=== PATIENT | female | born 1990 | race Caucasian/White ===

== ENCOUNTER 2022-11-10 07:06 | Inpatient (IN) ==
[2022-11-10] MEDS ORDERED: OXYTOCIN 30 UNITS/500 ML BAG IV PRN ×3 (07:46→15:55)
[2022-11-10] MEDS ORDERED: LIDOCAINE 1% LOCAL 20 ML VIAL INFIL PRN (07:46)
--- NOTE | 2022-11-10 08:09 | History & Physical Report ---
Date of Service November 10, 2022 Assessment & Plan (1) Spontaneous rupture of membranes: (2) Normal labor: (3) Prior miscarriage with , antepartum: Plan Plan - Patient admitted to labor and delivery for ROM and labor - Patient noticed ROM at 1:30 AM this morning w/ contractions arising at 2:30 AM - 2/80/-[address] Rebolledo - Discussed oxytocin augmentation if indicated - Will anticipate epidural as contractions arise, anesthesia consulted - Labs pending History of Present Illness Chief Complaint: R/o ROM Primary Care Provider: Lilibeth Harding DO Subjective: Elodia is a 32F currently at 40 1/7 with TRE 11/09/22 determined by LMP 02/02/22 who is presented to L&D for possible ROM and is being admitted for confirmed ROM/labor. Complications: None Reason for Induction/: N/a Movement: Yes Fluid Loss/ROM: Yes @ 1:30 AM, pink tinged fluid, no green/yellow color Contractions: Yes started @ 2:30 AM, ongoing Bloody show/discharge: No External FHT and uterine monitor: Category 1, tracing reactive, good FHT variability (+acel/-dcel), FHT average 140, contractions present q5min Last OB appointment: 11/03, regular care [facility] Hx: No Hx of STI, no abnormal PAP Labs: Blood Type: A+ Antibody Screen: Negative Hg/Hct (today): Pending WBC/Plt (today): Pending Rubella: Immune RPR: Non-reactive Gonorrhea: Negative Chlamydia: Negative HIV: Negative HbSAg: Negative GBS: Negative Panorama: Low risk Allergies Allergy/AdvReac Type Severity Reaction Status Date / Time No Known Allergies Allergy Verified 11/03/22 13:38 Home Medications Medication Instructions Recorded Confirmed Type prenat.vits,joseluis,[id number] 1 tab PO DAILY 03/26/22 11/03/22 History ferrous sulfate PO 09/02/22 11/03/22 History Patient History Medical History (Updated 11/10/22 @ 08:03 by Zakiya La DO) Dysplastic nevus syndrome Endometriosis Varicella vaccination Surgical History H/O wisdom tooth extraction Family History Grandmother (Maternal) Glaucoma Grandmother (Paternal) HHT (hereditary hemorrhagic telangiectasia) Father HHT (hereditary hemorrhagic telangiectasia) Mother Glaucoma Grandfather (Paternal) Diabetes Denies family history of Ovarian cancer Myocardial infarction Breast cancer Colorectal cancer Uterine cancer Social History (Updated 11/10/22 @ 07:34 by Lalita Holliday RN) Smoking Status: Never smoker Second Hand Exposure: No; Hx Alcohol Use: No Hx Substance Use: No Preferred Language: Luxembourger Visual Impairment: Partially Limited Hearing Ability: Normal Bobbin Handler Required: No Beliefs That Will Affect Care: None marital status: marital status details: Maxime Mcgregor (33) [phone] Current Living Situation: Spouse Current Living Situation Comment: lives with spouse, arturo current occupational status: employed current occupation: Teacher, [employer]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 How many Children do You have: 0 Other Information That Helps Us Care for You: No Feels Safe at Home: Yes Safety Concerns: Feels Safe At This Time Childhood Exposure to Second-Hand Smoke: Yes caffeine: Yes during the past year weight has: remained stable Dental Care, Regularly: No Physical Activity Frequency: Does not Exercise Seatbelt Use: sometimes Sunscreen Use: Yes Assistive Devices: None Review of Systems - Denies fever, chills, sweats - Denies dyspnea or pleuritic pain - Denies chest pain, palpitations, or pressure - Denies breast pain - Denies dysuria - Denies headache or visual changes - Endorses diarrhea last night Physical Exam Physical Exam: General: Alert, oriented. No acute distress. Cardiac: Regular rate and rhythm, no murmurs/rubs/gallops. Respiratory: Clear to auscultation bilaterally a/p, no wheezes/rales/rhonchi. No increased work of breathing. Symmetrical chest rise. No respiratory distress. Abdomen: Gravid; FHTs present, contractions present; Position: Vertex via Bryon maneuver Pelvic: 2/80/-[address] Rebolledo Lower Extremities: No lower extremity edema or swelling. No deep calf pain. Paolo's negative bilaterally. Results & Data ([facility]) Vital Signs (Past 12 Hours) Vital Signs Pulse BP 11/10/22 07:21 93 H 123/83 Supervising Physician Co-Signing Physician Notes Resident Physician Supervision Note: I interviewed and examined the patient. Discussed with Dr. La and agree with findings and plan as documented in the note. Any exceptions or clarifications are listed here: c/o ctx increasing in frequency and intensity, also noted intermittent gushes at 130 and every hour following. +FM, some pink tinge. SSE + nitrazine, pooling, ferning. SVE /-2, EFW 6-7. Was previously FT so will see if progresses over the next few hours, discussed pit if indicated Documented By: Awa Rebolledo MD Resident Activity Tracking Resident Involvement: Resident Care Provided Care Provided: OB Delivery
[2022-11-10 08:23] LABS: Hematocrit (blood only) 33.9 % (34.1-44.9); Hemoglobin 11.6 g/dl (12.0-16.0); Mean Corpuscular Hemoglobin 30.4 pg (25.0-34.0); Mean Corpuscular Hgb Conc 34.2 g/dL (32.0-36.0); Mean Corpuscular Volume 88.7 fL (80.0-100.0); Platelet Count 236 K/uL (130-400); RDW Coefficient of Variation 12.6 % (11.5-14.5); RDW Standard Deviation 40.7 fL (36.4-46.3); Red Blood Count 3.82 M/uL (3.93-5.22)
--- NOTE | 2022-11-10 09:52 | Labor Progress Brief Note ---
Date of Service November 10, 2022 Subjective feeling contractions Assessment & Plan (1) Spontaneous rupture of membranes: Plan Labor pattern not regular, rec pitocin. pt agrees. fhts categ 1. epidural ok when desires. Admission and Anticipated Discharge Date Admission Date: November 10, 2022 Physical Exam Constitutional: WD/WN, vitals as above Genitourinary: Manual OB Exam: + cervical dilation (2-3), + cervical effacement 90% and + station -2 OB Exam Monitor Tracing: + external FHT monitor used, + external uterine monitor used (q2-5), + category I and + normal FHT variability EFW 6-7# Results & Data ([facility]) Vital Signs (Past 12 Hours) Vital Signs Temp Pulse Resp BP 11/10/22 07:24 98.6 F 93 H 18 123/83 11/10/22 09:18 98.1 F 11/10/22 07:21 93 H 123/83 Coding Level of Care Code None Diagnoses Spontaneous rupture of membranes
[2022-11-10] MEDS: LACTATED RINGER'S 1,000 ML IV PRN ×2 (10:03→11:37)
[2022-11-10] MEDS ORDERED: ePHEDrine sulfate 50 MG/ML AMP ONE (10:48)
[2022-11-10] MEDS ORDERED: fentaNYL citrate 100 MCG/2 ML VIAL ONE (10:49)
[2022-11-10] MEDS ORDERED: fentaNYL 2MCG/ML ROPIVACAINE 1.25MG/ML 100 ML BAG EPI ONE (10:49)
[2022-11-10] MEDS ORDERED: SODIUM CHLORIDE 0.9% INJ 10 ML VIAL ONE (10:49)
[2022-11-10] MEDS ORDERED: BUPIVACAINE 0.25% 30 ML VIAL ONE (10:49)
[2022-11-10] MEDS ORDERED: LIDOCAINE 2%/EPINEPHRINE 1:200,000 20 ML SDV ONE (10:49)
--- NOTE | 2022-11-10 11:10 | Anesthesiology Consultation ---
Date of Service November 10, 2022 Assessment & Plan Chart Review Chart Review: Acceptable Risk for Labor Epidural Consults Requested none ASA ASA2 Proposed Anesthesia Anesthesia Type: Labor Epidural Risk / Benefits Reviewed With: PT / POA / Parent / Guardian, Accepts Plan and Informed Consent Obtained History Height/Weight Height: 5 ft 1 in Weight: 67.132 kg Allergies Allergy/AdvReac Type Severity Reaction Status Date / Time No Known Allergies Allergy Verified 11/03/22 13:38 Medications Home Medications Medication Instructions Recorded Confirmed Last Taken prenat.vits,joseluis,[id number] 1 tab PO DAILY 03/26/22 11/03/22 Unknown ferrous sulfate PO 09/02/22 11/03/22 Unknown Active Medications Generic Name Dose Route Start Last Admin Trade Name Freq PRN Reason Stop Dose Admin Lactated Ringer's 1,000 mls @ 125 mls/hr 11/10/22 07:46 11/10/22 10:45 Lr IV 11/12/22 07:45 999 mls/hr .Q8H PRN Infusion L&D Protocol Protocol Oxytocin 30 units in 500 mls @ 1 mls/hr 11/10/22 09:07 11/10/22 10:04 Pitocin IV 11/12/22 09:06 0.06 units/hr .Q24H PRN 1 mls/hr Labor Induction/Augmentation Administration Protocol 0.06 UNITS/HR Past Medical History Medical History Dysplastic nevus syndrome Endometriosis Varicella vaccination Exercise / Class Metabolic Activity II 4-5 Yardwork/Stairs/Walk up hill Past Family History Family History Grandmother (Maternal) Glaucoma Grandmother (Paternal) HHT (hereditary hemorrhagic telangiectasia) Father HHT (hereditary hemorrhagic telangiectasia) Mother Glaucoma Grandfather (Paternal) Diabetes Denies family history of Ovarian cancer Myocardial infarction Breast cancer Colorectal cancer Uterine cancer Past Surgical History Surgical History H/O wisdom tooth extraction Past Anesthesia History No Hx of Anesthesia Complications and No Family Hx of Anesthesia Complications History of PONV No Hx of PONV and No Hx of Motion Sickness Social History Smoking Status: Never smoker Hx Alcohol Use: No Hx Substance Use: No substance use type: does not use Physical Exam Vital Signs Last Vital Signs Temp 98.1 F 11/10/22 09:18 Pulse 90 11/10/22 11:04 Resp 18 11/10/22 07:24 BP 133/80 11/10/22 11:04 ENMT Mouth: no dentition abnormality Thyromental Distance: > or= 3.5 Finger Breadths Mallampati Class: II Neck normal visual inspection Respiratory normal respiratory effort Auscultation: lungs clear to auscultation bilaterally Cardiovascular Rate/Rhythm: regular rate and regular rhythm Testing Laboratory Results 11/10/22 07:58
[2022-11-10] MEDS ORDERED: NALOXONE HCL 0.4 MG/1 ML VIAL/CARP IV PRN (11:30)
[2022-11-10] MEDS ORDERED: fentaNYL 2MCG/ML ROPIVACAINE 1.25MG/ML 100 ML BAG EPI PRN (11:30)
[2022-11-10] MEDS ORDERED: ONDANSETRON INJ 2 MG/ML 2 ML VIAL IV PRN (11:30)
[2022-11-10] MEDS ORDERED: NALOXONE HCL 1 MG in SODIUM CHLORIDE 0.9% 1000ML 1,000 ML IV PRN (11:30)
[2022-11-10] MEDS ORDERED: diphenhydrAMINE 50 MG/ML VIAL IV PRN (11:30)
[2022-11-10] MEDS ORDERED: ePHEDrine sulfate 50 MG/ML AMP IV PRN (11:30)
[2022-11-10] MEDS ORDERED: NALBUPHINE HCL INJ 10 MG/ML AMP IV PRN (11:30)
[2022-11-10] MEDS ORDERED: NURSING L&D Epidural Breakthrough Pain Update ONE (13:03)
--- NOTE | 2022-11-10 13:46 | Labor Progress Brief Note ---
Date of Service November 10, 2022 Subjective denies pressure Assessment & Plan (1) Spontaneous rupture of membranes: (2) Normal labor: Plan cont with pit augmentation. antip 2nd stage soon. fhts categ 1. Admission and Anticipated Discharge Date Admission Date: November 10, 2022 Physical Exam Constitutional: WD/WN, vitals as above Genitourinary: Manual OB Exam: + cervical dilation (rim), + cervical effacement 100%, + station + 1 and + amniotic fluid (forebag arom with exam) OB Exam Monitor Tracing: + external FHT monitor used, + external uterine monitor used (q2 pit at 9), + category I and + normal FHT variability [facility] & [facility]) Vital Signs (Past 12 Hours) Vital Signs Temp Pulse Resp BP Pulse Ox 11/10/22 12:45 18 11/10/22 12:30 20 11/10/22 12:15 18 11/10/22 12:00 20 11/10/22 11:45 18 11/10/22 07:24 98.6 F 93 H 18 123/83 11/10/22 13:40 96 H 100 11/10/22 13:35 65 98 11/10/22 13:33 72 118/75 11/10/22 13:30 66 98 11/10/22 13:25 71 99 11/10/22 13:20 76 100 11/10/22 13:17 74 122/77 11/10/22 13:15 81 100 11/10/22 13:11 77 122/78 11/10/22 13:10 77 99 11/10/22 13:06 75 115/77 11/10/22 13:05 74 98 11/10/22 13:03 74 119/74 11/10/22 13:00 89 99 11/10/22 12:58 98.6 F 77 123/73 11/10/22 12:55 82 99 11/10/22 12:50 81 98 11/10/22 12:51 80 120/81 11/10/22 12:47 81 117/80 11/10/22 12:45 89 98 11/10/22 12:42 81 118/76 11/10/22 12:40 81 99 11/10/22 12:36 83 110/69 11/10/22 12:35 81 98 11/10/22 12:32 87 105/70 11/10/22 12:30 81 98 11/10/22 11:30 18 11/10/22 11:30 18 11/10/22 12:26 78 108/65 11/10/22 12:25 74 98 11/10/22 12:21 78 110/67 11/10/22 12:20 75 98 11/10/22 12:16 81 109/67 11/10/22 12:15 79 98 11/10/22 12:11 74 116/73 11/10/22 12:10 80 99 11/10/22 12:07 78 114/74 11/10/22 12:05 82 99 11/10/22 12:01 78 105/61 11/10/22 12:00 85 98 11/10/22 11:56 83 108/68 11/10/22 11:55 80 98 11/10/22 11:00 98.2 F 11/10/22 11:52 83 108/68 11/10/22 11:50 86 98 11/10/22 11:46 88 112/70 11/10/22 11:45 92 H 98 11/10/22 11:44 88 112/72 11/10/22 11:42 81 105/65 11/10/22 11:40 99 11/10/22 11:40 91 H 11/10/22 11:40 92 H 112/73 11/10/22 11:38 88 107/70 11/10/22 11:35 89 99 11/10/22 11:36 93 H 113/69 11/10/22 11:34 82 112/70 11/10/22 11:32 92 H 122/75 11/10/22 11:30 99 11/10/22 11:30 86 11/10/22 11:30 80 115/69 11/10/22 11:27 96 H 126/85 11/10/22 11:25 89 99 11/10/22 11:20 82 100 11/10/22 11:15 91 H 100 11/10/22 11:10 106 H 100 11/10/22 11:04 90 133/80 11/10/22 10:03 74 127/92 11/10/22 09:18 98.1 F 11/10/22 07:21 93 H 123/83 Coding Level of Care Code None Diagnoses Spontaneous rupture of membranes Normal labor O80; Z37.9
--- NOTE | 2022-11-10 15:21 | Delivery Summary ---
Vaginal Delivery Summary Date of Service November 10, 2022 Vaginal Delivery Summary The patient dilated to complete and pushed to deliver a viable female Apgars 9 and 9 via over intact perineum. Mouth and nose bulb suctioned at perineum. Shoulders and body delivered with ease. was vigorous and crying at . Cord clamped at 30 seconds of life and to maternal abdomen where the cord was then doubly clamped and cut. Placenta delivered spontaneously and intact, three-vessel cord. Hemostasis achieved with dilute pitocin and uterine massage and drainage of the bladder for approximately 150 cc under sterile conditions. Left sulcal laceration and bilateral labia lacerations repaired with 3-0 vicyl. Cervix and sulci intact. EBL 500 cc. Mother and baby stable in recovery. [facility] Vaginal Delivery Charge Delivery Type Details:
[2022-11-10] MEDS ORDERED: bisacodyL 10 MG SUPP PR PRN (15:55)
[2022-11-10] MEDS ORDERED: BENZOCAINE 20% AER SPR 82.5 GM CAN EXT PRN (15:55)
[2022-11-10] MEDS ORDERED: ACETAMINOPHEN 325 MG TAB PO PRN (15:55)
[2022-11-10] MEDS ORDERED: HYDROCORTISONE ACETATE 25 MG SUPP PR PRN (15:55)
[2022-11-10] MEDS ORDERED: oxyCODONE/ACETAMINOPHEN 5mg/325mg TAB PO PRN (15:55)
[2022-11-10] MEDS ORDERED: DIPHTHERIA/TETANUS/PERTUSSIS 0.5 ML SYR/VIAL IM ONE (15:55)
[2022-11-10] MEDS ORDERED: OXYTOCIN 20 UNITS in LACTATED RINGER'S 1,000 ML IV SCH (16:15)
[2022-11-10] MEDS: IBUPROFEN 600 MG TAB PO PRN (17:37)
--- NOTE | 2022-11-11 05:26 | Obstetrical Progress Note ---
Date of Service November 11, 2022 Assessment & Plan (1) care following vaginal delivery: Plan - Overall, feeling well and eating well today, notes shakiness in hands and legs at rest - Infant feeding going well - Notes episode of urinary incontinence yesterday afternoon, normal void since, continue to follow - Passing gas appropriately - Ambulating in room, notes lightheadedness, recommending nursing assist today - Pain controlled w/ Ibuprofen - Hgb 11.6 on 11/10, H&H ordered for 11/11 AM - Vitals stable and wnl - Continue to advance routine PP care - Anticipate discharge @ 48+ hours PP - Recommending f/u outpatient in 6 weeks Admission and Anticipated Discharge Date Admission Date: November 10, 2022 Supervising Physician Co-Signing Physician Notes Resident Physician Supervision Note: I was present with Dr. La during the history and exam. I discussed the case with the resident and agree with the findings and plan as documented in the note. Any exceptions or clarifications are listed here: stable, eating, voiding, ambulating. in discussion with her suspect her jittery sx are due to anxiety. will await hgb this am but she is sitting upright in bed and tolerating that and no excess bleeding so do not suspect any issues with hemoglobin. encouraged eating and hydration and moving this am. routine pp care. reviewed with her nursing team. Documented By: Alka Cabrera MD, FACOG Subjective Elodia is a 32F who is PPD #1 following vaginal delivery at 40 1/7. She reports feeling well overall, but has been 'shaky' since baby left the room for the nursery at 4 AM. - Ambulation - to bathroom, notes lightheadedness with standing/turning - Voiding/Jasso - independent voids, no dysuria or pressure, notes episode of incontinence yesterday (did not experience sensation to void), had normal void since - Gas/Stool - passing gas, no bowel movement - Diet - light regular (crackers), no nausea or emesis - Lochia - diminishing, moderate amount - Infant Feeding Type - breast feeding - Pain Level - 11/30, controlled with Ibuprofen Review of Systems - Patient notes that she is overall 'shaky', she believes this started whenever her baby left to go to the nursery, she notes worsening anxiety whenever infant left the room - Denies fever, chills, sweats - Denies shortness of breath, difficulty breathing, chest pain, palpitations, chest pressure. - Denies breast pain. - Denies headache or changes in vision. Physical Exam Physical Exam: General: Alert, oriented. No acute distress. Cardiac: RRR, normal S1/S2, no murmurs/rubs/gallops. Respiratory: Non-labored, CTAB, no wheezes/rales/rhonchi. Symmetric chest rise. Abdomen: Soft, nontender, nondistended. Bowel sounds present. Uterus: Uterine fundus firm, palpable 2 cm below umbilicus. Lower Extremities: No lower extremity edema or swelling. No deep calf pain. Paolo's negative bilaterally. Results & Data ([facility]) Vital Signs (Past 12 Hours) Vital Signs Temp Pulse Pulse Pulse Resp BP BP 11/11/22 03:49 36.9 C 84 18 123/76 11/10/22 23:20 37 C 73 18 117/81 11/10/22 20:00 36.6 C 82 18 124/81 11/10/22 19:40 36.9 C 79 18 129/85 11/10/22 18:10 37.3 C 20 11/10/22 18:03 111 H 115/73 11/10/22 17:48 95 H 124/84 11/10/22 17:33 90 125/82 Pulse Ox O2 Del Method 11/11/22 03:49 97 Room Air 11/10/22 23:20 98 Room Air 11/10/22 20:00 96 Room Air 11/10/22 19:40 97 Room Air 11/10/22 18:10 11/10/22 18:03 11/10/22 17:48 11/10/22 17:33 Resident Activity Tracking Resident Involvement: Resident Care Provided Care Provided: OB Delivery
[2022-11-11 06:59] LABS: Hematocrit (blood only) 28.8 % (34.1-44.9); Hemoglobin 9.9 g/dl (12.0-16.0)
[2022-11-11] MEDS: PRENATAL VITAMIN 1 TAB PO SCH (08:33)
[2022-11-11] MEDS: IBUPROFEN 600 MG TAB PO PRN ×3 (08:33→19:22)
[2022-11-11] MEDS: DOCUSATE SODIUM 100 MG CAP PO SCH ×2 (08:34→19:22)
--- NOTE | 2022-11-12 05:47 | Obstetrical Progress Note ---
Date of Service November 12, 2022 Assessment & Plan (1) care following vaginal delivery: Plan - Overall, feeling well and eating well today, she wants to go home - feeding going well - Urinating and stooling appropriately - Ambulating in room - Pain controlled w/ Ibuprofen - Hgb 9.9 on 11/11 - Vitals stable and wnl - Anticipate discharge today - Recommending f/u outpatient in 6 weeks Admission and Anticipated Discharge Date Admission Date: November 10, 2022 Supervising Physician Co-Signing Physician Notes Resident Physician Supervision Note: I was present with Dr. La during the history and exam. I discussed the case with the resident and agree with the findings and plan as documented in the note. Any exceptions or clarifications are listed here: [None] Documented By: Heide Bowers MD, FACOG Subjective Elodia is a 32F who is PPD #2 following vaginal delivery at 40 1/7. She reports feeling well overall and wishes to go home. - Ambulation - well throughout room - Voiding/Jasso - independent voids, no dysuria or pressure - Gas/Stool - passing gas, bowel movement today - Diet - regular , no nausea or emesis - Lochia - diminishing, moderate amount - Feeding Type - breast feeding - Pain Level - 1/10, controlled with Ibuprofen Review of Systems - Shakiness resolved - Denies fever, chills, sweats - Denies shortness of breath, difficulty breathing, chest pain, palpitations, chest pressure. - Denies breast pain. - Denies headache or changes in vision. Physical Exam Physical Exam: General: Alert, oriented. No acute distress. Cardiac: RRR, normal S1/S2, no murmurs/rubs/gallops. Respiratory: Non-labored, CTAB, no wheezes/rales/rhonchi. Symmetric chest rise. Abdomen: Soft, nontender, nondistended. Bowel sounds present. Uterus: Uterine fundus firm, palpable 2 cm below umbilicus. Lower Extremities: No lower extremity edema or swelling. No deep calf pain. Paolo's negative bilaterally. Results & Data ([facility]) Vital Signs (Past 12 Hours) Vital Signs Temp Pulse Resp BP Pulse Ox O2 Del Method 11/11/22 23:58 36.9 C 86 16 126/83 96 Room Air 11/11/22 19:08 36.9 C 99 H 16 129/86 97 Room Air Resident Activity Tracking Resident Involvement: Resident Care Provided Care Provided: OB Delivery
[2022-11-12] MEDS: IBUPROFEN 600 MG TAB PO PRN (08:34)
[2022-11-12] MEDS: DOCUSATE SODIUM 100 MG CAP PO SCH (08:34)
[2022-11-12] MEDS: PRENATAL VITAMIN 1 TAB PO SCH (08:34)
== END 2022-11-12 10:45 | disposition home or self-care (01) | DRG 807 ==
LOC: OPB 07:06 → 4S1 07:11 → 4E2 19:05